=== PATIENT | female | born 1960 | race Two or more races ===

== ENCOUNTER 2020-12-06 13:56 | Inpatient (IN) | payer MEDICARE, MEDICAID ==
[~2020-12-06] VITALS: Ht 165.1 cm; Wt 57.6 kg
[2020-12-06] MEDS ORDERED: SODIUM CHLORIDE 0.9% 1,000 ML IV ONE (15:15)
[2020-12-06 15:49] LABS: Basophils # (auto) 0 10 ^3/uL (0-0.2); Basophils % (auto) 0.5 % (0.0-2.0); Eosinophils # (auto) 0.1 10 ^3/uL (0-0.8); Hematocrit 38.1 % (36.0-46.0); Hemoglobin 12.8 g/dL (12.2-16.2); Lymphocytes # (auto) 1.8 10 ^3/uL (0.4-5.4); Lymphocytes % (auto) 24.8 % (10.0-50.0); Mean Corpuscular Hemoglobin 30.3 pg (28.0-32.0); Mean Corpuscular Hgb Conc. 33.6 g/dL (32.0-36.0); Mean Corpuscular Volume 90.5 fL (80.0-100.0); Monocytes # (auto) 0.5 10 ^3/uL (0-1.3); Monocytes % (auto) 7.6 % (0.0-12.0); Neutrophils # (auto) 4.6 10 ^3/uL (1.6-8.6); Neutrophils % (auto) 65.1 % (37.0-80.0); Platelet Count (auto) 348 10^3/uL (140-450); Red Blood Cells 4.21 10^6/uL (4.0-5.20); Red Cell Distribution Width 13.4 % (11.8-14.3); White Blood Cell 7.1 10^3/uL (4.4-10.8)
[2020-12-06 16:09] LABS: Anion Gap 3 (5-15); Blood Urea Nitrogen 6 mg/dL (7-18); Calcium 8.5 mg/dL (8.5-10.1); Carbon Dioxide 28 mmol/L (21-32); Chloride 106 mmol/L (98-107); Glucose 92 mg/dL (74-106); Potassium 4.1 mmol/L (3.5-5.1); Sodium 137 mmol/L (136-145)
[2020-12-06 16:13] LABS: INR 0.91 (0.9-1.15); Partial Thromboplastin Time 27.4 sec (23.0-31.2)
[2020-12-06 16:17] LABS: Alanine Aminotransferase 30 U/L (13-56); Alkaline Phosphatase 134 U/L (45-117); Aspartate Aminotransferase 25 U/L (15-37); BUN/Creatinine Ratio 11.5; Bilirubin, Total < 0.1 mg/dL (0.2-1.0); GFR African American 155 mL/min; GFR Non-African American 128 mL/min; Total Protein 6.4 g/dL (6.4-8.2)
[2020-12-06] MEDS ORDERED: ONDANSETRON HCL 4 MG/2 ML VIAL IV ONE (18:15)
[2020-12-06] MEDS ORDERED: MORPHINE SULFATE 4 MG/ML SYR/VIAL IV ONE (18:15)
[2020-12-06] MEDS ORDERED: ONDANSETRON HCL 4 MG/2 ML VIAL IV PRN (19:15)
[2020-12-06] MEDS ORDERED: MORPHINE SULF INJ 2 MG/ML SYRINGE 1ML IV PRN (19:15)
[2020-12-06] MEDS ORDERED: NITROGLYCERIN 0.4 MG SL TAB SL PRN (19:15)
[2020-12-06 19:37] LABS: Urine Bacteria NONE SEEN /hpf (None Seen); Urine Blood Negative /uL (Negative); Urine Specific Gravity 1.007 (1.001-1.035); Urine WBC <1 /hpf (0 - 5)
[2020-12-06] MEDS: GABAPENTIN 100 MG CAP PO SCH (22:12)
[2020-12-06] MEDS: HYDROcodone-ACET 5/325MG TAB PO PRN (22:14)
[2020-12-06 23:15] VITALS: BP 129/68
[2020-12-06 23:20] VITALS: BP 129/68
[2020-12-07] MEDS ORDERED: PRIM50TA27 PO (00:29)
[2020-12-07] MEDS ORDERED: LISI-275 PO (00:29)
[2020-12-07] MEDS ORDERED: CLON0.5T3 PO (00:29)
[2020-12-07] MEDS ORDERED: SERT50TA19 PO (00:29)
[2020-12-07] MEDS ORDERED: MELO1TAB56 PO (00:29)
[2020-12-07] MEDS ORDERED: GABA-339 PO (00:29)
[2020-12-07] MEDS ORDERED: HYDR-4795 PO (00:32)
[2020-12-07] MEDS ORDERED: SERT-160 PO (03:07)
[2020-12-07 05:06] VITALS: BP 147/83
[2020-12-07] MEDS: GABAPENTIN 100 MG CAP PO SCH ×2 (09:35→22:00)
[2020-12-07] MEDS: FAMOTIDINE 20 MG TAB PO SCH (09:35)
[2020-12-07] MEDS: LISINOPRIL 5 MG TAB PO SCH (09:36)
[2020-12-07] MEDS ORDERED: ENOXAPARIN SOD 40 MG/0.4 ML SYRINGE SC SCH (10:00)
[2020-12-07 13:00] VITALS: BP 131/79
[2020-12-07 17:00] VITALS: BP 132/76
[2020-12-07 20:00] VITALS: BP 134/70
[2020-12-07 22:00] VITALS: BP 134/70
[2020-12-08] VITALS (15 sets, daily range): BP systolic 131–160; BP diastolic 68–114
[2020-12-08 06:42] LABS: Basophils # (auto) 0 10 ^3/uL (0-0.2); Basophils % (auto) 0.4 % (0.0-2.0); Eosinophils # (auto) 0.1 10 ^3/uL (0-0.8); Eosinophils % (auto) 2.1 % (0.0-7.0); Hematocrit 38.7 % (36.0-46.0); Hemoglobin 13.1 g/dL (12.2-16.2); Lymphocytes # (auto) 1.6 10 ^3/uL (0.4-5.4); Lymphocytes % (auto) 22.9 % (10.0-50.0); Mean Corpuscular Hemoglobin 30.6 pg (28.0-32.0); Mean Corpuscular Hgb Conc. 33.9 g/dL (32.0-36.0); Mean Corpuscular Volume 90.4 fL (80.0-100.0); Monocytes # (auto) 0.6 10 ^3/uL (0-1.3); Monocytes % (auto) 8.5 % (0.0-12.0); Neutrophils # (auto) 4.7 10 ^3/uL (1.6-8.6); Neutrophils % (auto) 66.1 % (37.0-80.0); Nucleated Red Blood Cells % 0.1 %; Platelet Count (auto) 319 10^3/uL (140-450); Red Blood Cells 4.28 10^6/uL (4.0-5.20); Red Cell Distribution Width 13.7 % (11.8-14.3); White Blood Cell 7.1 10^3/uL (4.4-10.8)
[2020-12-08 07:02] LABS: BUN/Creatinine Ratio 27.1; Calcium 9.1 mg/dL (8.5-10.1); Magnesium 2.4 mg/dL (1.6-2.6); Potassium 4.4 mmol/L (3.5-5.1)
[2020-12-08] MEDS: GABAPENTIN 100 MG CAP PO SCH ×2 (10:19→22:06)
[2020-12-08] MEDS: FAMOTIDINE 20 MG TAB PO SCH (10:19)
[2020-12-08] MEDS: LISINOPRIL 5 MG TAB PO SCH (10:20)
[2020-12-08] MEDS: HYDROcodone-ACET 5/325MG TAB PO PRN (10:20)
[2020-12-08] MEDS ORDERED: fentaNYL CITRATE 100 MCG/2 ML VL ONE (12:15)
[2020-12-08] MEDS ORDERED: ONDANSETRON HCL 4 MG/2 ML VIAL ONE (12:15)
[2020-12-08] MEDS ORDERED: ePHEDrine SULFATE 50 MG/ML AMP ONE (12:15)
[2020-12-08] MEDS ORDERED: KETAMINE HCL 10 ML ONE (12:15)
[2020-12-08] MEDS ORDERED: GLYCOPYRROLATE 0.2 MG/ML 1ML VIAL ONE (12:15)
[2020-12-08] MEDS ORDERED: MIDAZOLAM HCL 1MG/1ML-2 ML VIAL ONE (12:15)
[2020-12-08] MEDS ORDERED: PROPOFOL 10 MG/ML 20 ML IV ONE (12:15)
[2020-12-08] MEDS ORDERED: MORPHINE SULF(PF) 0.5MG/ML 10ML VIAL ONE (12:17)
[2020-12-08] MEDS ORDERED: BUPIVACAINE 0.5% P/F INJ 10 ML VIAL ONE (12:17)
[2020-12-08] MEDS ORDERED: ceFAZolin 1GM/50ML 50 ML IV SCH (14:15)
[2020-12-08] MEDS ORDERED: diphenhdrAMINE HCL 50 MG/1 ML VL IV PRN (14:15)
[2020-12-08] MEDS ORDERED: DexAMETHasone SOD PHOS 10MG/1ML VIAL INJ IV PRN (14:15)
[2020-12-08] MEDS ORDERED: NALOXONE HCL 0.4 MG/ML VIAL IV PRN (14:15)
[2020-12-08] MEDS ORDERED: ACETAMINOPHEN 325 MG TAB PO PRN (14:15)
[2020-12-08] MEDS ORDERED: ONDANSETRON HCL 4 MG/2 ML VIAL IV PRN (14:15)
[2020-12-08] MEDS: LACTATED RINGER'S 1,000 ML IV SCH (15:16)
[2020-12-08] MEDS: ceFAZolin 1GM/50ML 50 ML IV SCH ×2 (15:16→22:06)
[2020-12-08] MEDS: HYDROcodone-ACET 10/325MG TAB PO PRN ×2 (17:09→22:54)
[2020-12-08] MEDS ORDERED: LABETALOL HCL 5 MG/ML 4ML SYRINGE IV ONE (18:30)
[2020-12-08] MEDS: SODIUM CHLOR 0.9% PF (SALINE LOCK) 10ML VIAL/SYR IV SCH (22:06)
[2020-12-08] MEDS: ONDANSETRON HCL 4 MG/2 ML VIAL IV PRN (22:32)
[2020-12-09] VITALS (20 sets, daily range): BP systolic 99–159; BP diastolic 52–92
[2020-12-09] MEDS: LACTATED RINGER'S 1,000 ML IV SCH ×3 (00:15→20:15)
[2020-12-09] MEDS: ceFAZolin 1GM/50ML 50 ML IV SCH (03:11)
[2020-12-09 05:44] LABS: Basophils # (auto) 0 10 ^3/uL (0-0.2); Basophils % (auto) 0.1 % (0.0-2.0); Eosinophils # (auto) 0 10 ^3/uL (0-0.8); Eosinophils % (auto) 0.2 % (0.0-7.0); Hematocrit 31.2 % (36.0-46.0); Hemoglobin 11.1 g/dL (12.2-16.2); Lymphocytes # (auto) 1.3 10 ^3/uL (0.4-5.4); Mean Corpuscular Hemoglobin 31.6 pg (28.0-32.0); Mean Corpuscular Hgb Conc. 35.4 g/dL (32.0-36.0); Mean Corpuscular Volume 89.1 fL (80.0-100.0); Neutrophils # (auto) 8.6 10 ^3/uL (1.6-8.6); Neutrophils % (auto) 78.7 % (37.0-80.0); Platelet Count (auto) 269 10^3/uL (140-450); Red Cell Distribution Width 13.2 % (11.8-14.3); White Blood Cell 10.9 10^3/uL (4.4-10.8)
[2020-12-09 06:02] LABS: Albumin 2.5 g/dL (3.4-5.0); Potassium 3.6 mmol/L (3.5-5.1)
[2020-12-09] MEDS: HYDROcodone-ACET 10/325MG TAB PO PRN ×3 (06:04→22:19)
[2020-12-09] MEDS: SODIUM CHLOR 0.9% PF (SALINE LOCK) 10ML VIAL/SYR IV SCH ×3 (06:05→21:49)
[2020-12-09 06:07] LABS: BUN/Creatinine Ratio 15.4; Bilirubin, Total 0.3 mg/dL (0.2-1.0); Total Protein 5.6 g/dL (6.4-8.2)
[2020-12-09] MEDS: FAMOTIDINE 20 MG TAB PO SCH (10:35)
[2020-12-09] MEDS: LISINOPRIL 5 MG TAB PO SCH (10:35)
[2020-12-09] MEDS: GABAPENTIN 100 MG CAP PO SCH ×2 (10:36→21:45)
[2020-12-09] MEDS: ENOXAPARIN SOD 40 MG/0.4 ML SYRINGE SC SCH (10:38)
[2020-12-09] MEDS: LACTULOSE 20Gm/30ML SOLN PO PRN (12:35)
[2020-12-09] MEDS: Ensure HIGH Protein Chocolate 8oz Bottle PO SCH ×2 (12:41→18:53)
[2020-12-09] MEDS: MORPHINE SULF INJ 2 MG/ML SYRINGE 1ML IV PRN ×2 (16:15→23:19)
[2020-12-09] MEDS ORDERED: HYDROmorphone HCL 2 MG/ML VL IV ONE (17:45)
[2020-12-10] MEDS: MORPHINE SULF INJ 2 MG/ML SYRINGE 1ML IV PRN (04:45)
[2020-12-10 05:00] VITALS: BP 129/75
[2020-12-10] MEDS: SODIUM CHLOR 0.9% PF (SALINE LOCK) 10ML VIAL/SYR IV SCH ×3 (06:14→22:00)
[2020-12-10] MEDS: LACTATED RINGER'S 1,000 ML IV SCH ×2 (06:15→16:15)
[2020-12-10] MEDS: HYDROcodone-ACET 10/325MG TAB PO PRN ×4 (06:18→21:32)
[2020-12-10] MEDS: LACTULOSE 20Gm/30ML SOLN PO PRN (06:18)
[2020-12-10 06:56] LABS: Basophils # (auto) 0 10 ^3/uL (0-0.2); Basophils % (auto) 0.4 % (0.0-2.0); Eosinophils # (auto) 0.1 10 ^3/uL (0-0.8); Eosinophils % (auto) 0.5 % (0.0-7.0); Hematocrit 32.4 % (36.0-46.0); Hemoglobin 11.2 g/dL (12.2-16.2); Lymphocytes # (auto) 1.3 10 ^3/uL (0.4-5.4); Lymphocytes % (auto) 12.4 % (10.0-50.0); Mean Corpuscular Hemoglobin 31.1 pg (28.0-32.0); Mean Corpuscular Hgb Conc. 34.7 g/dL (32.0-36.0); Mean Corpuscular Volume 89.7 fL (80.0-100.0); Monocytes # (auto) 1.2 10 ^3/uL (0-1.3); Monocytes % (auto) 11.6 % (0.0-12.0); Neutrophils # (auto) 7.6 10 ^3/uL (1.6-8.6); Neutrophils % (auto) 75.1 % (37.0-80.0); Platelet Count (auto) 260 10^3/uL (140-450); Red Blood Cells 3.61 10^6/uL (4.0-5.20); Red Cell Distribution Width 13.5 % (11.8-14.3); White Blood Cell 10.2 10^3/uL (4.4-10.8)
[2020-12-10 07:15] LABS: Calcium 8.8 mg/dL (8.5-10.1); Potassium 3.9 mmol/L (3.5-5.1)
[2020-12-10 07:17] LABS: BUN/Creatinine Ratio 18.4
[2020-12-10 09:00] VITALS: BP 144/83
[2020-12-10] MEDS: GABAPENTIN 100 MG CAP PO SCH ×2 (10:01→21:31)
[2020-12-10] MEDS: Ensure HIGH Protein Chocolate 8oz Bottle PO SCH ×3 (10:01→17:55)
[2020-12-10] MEDS: LISINOPRIL 5 MG TAB PO SCH (10:02)
[2020-12-10] MEDS: FAMOTIDINE 20 MG TAB PO SCH ×2 (10:02→21:31)
[2020-12-10] MEDS: ENOXAPARIN SOD 40 MG/0.4 ML SYRINGE SC SCH (10:03)
[2020-12-10] MEDS: ONDANSETRON HCL 4 MG/2 ML VIAL IV PRN ×2 (12:18→21:32)
[2020-12-10 13:00] VITALS: BP 124/72
[2020-12-10 16:48] VITALS: BP 148/79
[2020-12-10 22:00] VITALS: BP 132/67
[2020-12-10] MEDS ORDERED: clonazePAM 0.5 MG TAB PO PRN (22:00)
[2020-12-11] MEDS: LACTATED RINGER'S 1,000 ML IV SCH ×3 (02:15→22:15)
[2020-12-11 05:00] VITALS: BP 120/66
[2020-12-11] MEDS: HYDROcodone-ACET 10/325MG TAB PO PRN ×3 (05:22→20:54)
[2020-12-11] MEDS: SODIUM CHLOR 0.9% PF (SALINE LOCK) 10ML VIAL/SYR IV SCH ×3 (05:52→22:00)
[2020-12-11 06:16] LABS: Basophils # (auto) 0 10 ^3/uL (0-0.2); Basophils % (auto) 0.1 % (0.0-2.0); Eosinophils # (auto) 0.1 10 ^3/uL (0-0.8); Eosinophils % (auto) 1.4 % (0.0-7.0); Hematocrit 31.3 % (36.0-46.0); Hemoglobin 11.1 g/dL (12.2-16.2); Lymphocytes # (auto) 1.8 10 ^3/uL (0.4-5.4); Lymphocytes % (auto) 20.7 % (10.0-50.0); Mean Corpuscular Hemoglobin 31.7 pg (28.0-32.0); Mean Corpuscular Hgb Conc. 35.5 g/dL (32.0-36.0); Mean Corpuscular Volume 89.1 fL (80.0-100.0); Monocytes % (auto) 11.5 % (0.0-12.0); Neutrophils # (auto) 5.8 10 ^3/uL (1.6-8.6); Neutrophils % (auto) 66.3 % (37.0-80.0); Platelet Count (auto) 264 10^3/uL (140-450); Red Blood Cells 3.52 10^6/uL (4.0-5.20); Red Cell Distribution Width 13.4 % (11.8-14.3); White Blood Cell 8.7 10^3/uL (4.4-10.8)
[2020-12-11 06:36] LABS: Potassium 3.6 mmol/L (3.5-5.1)
[2020-12-11 06:41] LABS: Albumin 2.6 g/dL (3.4-5.0)
[2020-12-11 06:44] LABS: Bilirubin, Total 0.3 mg/dL (0.2-1.0); Total Protein 6.3 g/dL (6.4-8.2)
[2020-12-11] MEDS: Ensure HIGH Protein Chocolate 8oz Bottle PO SCH ×3 (08:01→18:53)
[2020-12-11] MEDS: ONDANSETRON HCL 4 MG/2 ML VIAL IV PRN ×2 (08:06→18:55)
[2020-12-11 09:00] VITALS: BP 126/73
[2020-12-11] MEDS: ENOXAPARIN SOD 40 MG/0.4 ML SYRINGE SC SCH (09:15)
[2020-12-11] MEDS: FAMOTIDINE 20 MG TAB PO SCH ×2 (09:16→21:28)
[2020-12-11] MEDS: GABAPENTIN 100 MG CAP PO SCH (09:16)
[2020-12-11] MEDS: PRIMIDONE 50 MG TAB PO SCH ×2 (09:16→21:28)
[2020-12-11] MEDS: LISINOPRIL 5 MG TAB PO SCH (09:17)
[2020-12-11 13:00] VITALS: BP 115/76
[2020-12-11 17:00] VITALS: BP 112/65
[2020-12-11] MEDS: GABAPENTIN 300 MG CAP PO SCH (21:28)
[2020-12-11] MEDS: SERTRALINE HCL 50 MG TAB PO SCH (21:28)
[2020-12-11 22:13] VITALS: BP 134/78
[2020-12-12 04:53] VITALS: BP 112/55
[2020-12-12 05:58] LABS: Basophils # (auto) 0 10 ^3/uL (0-0.2); Basophils % (auto) 0.3 % (0.0-2.0); Eosinophils # (auto) 0.2 10 ^3/uL (0-0.8); Eosinophils % (auto) 2.1 % (0.0-7.0); Hematocrit 28.2 % (36.0-46.0); Lymphocytes # (auto) 1.2 10 ^3/uL (0.4-5.4); Lymphocytes % (auto) 14.8 % (10.0-50.0); Mean Corpuscular Hemoglobin 31.4 pg (28.0-32.0); Mean Corpuscular Hgb Conc. 35.3 g/dL (32.0-36.0); Mean Corpuscular Volume 88.8 fL (80.0-100.0); Neutrophils # (auto) 5.7 10 ^3/uL (1.6-8.6); Neutrophils % (auto) 70.8 % (37.0-80.0); Nucleated Red Blood Cells % 0.1 %; Platelet Count (auto) 256 10^3/uL (140-450); Red Blood Cells 3.17 10^6/uL (4.0-5.20); Red Cell Distribution Width 13.4 % (11.8-14.3)
[2020-12-12] MEDS: SODIUM CHLOR 0.9% PF (SALINE LOCK) 10ML VIAL/SYR IV SCH (06:00)
[2020-12-12 06:20] LABS: Potassium 4.1 mmol/L (3.5-5.1)
[2020-12-12 06:32] LABS: BUN/Creatinine Ratio 35.5; Calcium 8.7 mg/dL (8.5-10.1)
[2020-12-12] MEDS: Ensure HIGH Protein Chocolate 8oz Bottle PO SCH (08:00)
[2020-12-12] MEDS: LACTATED RINGER'S 1,000 ML IV SCH (08:15)
[2020-12-12 09:00] VITALS: BP 108/67
[2020-12-12] MEDS: PRIMIDONE 50 MG TAB PO SCH (09:13)
[2020-12-12] MEDS: FAMOTIDINE 20 MG TAB PO SCH (09:14)
[2020-12-12] MEDS: GABAPENTIN 300 MG CAP PO SCH (09:14)
[2020-12-12] MEDS: LISINOPRIL 5 MG TAB PO SCH (09:15)
[2020-12-12] MEDS: SERTRALINE HCL 50 MG TAB PO SCH (09:15)
[2020-12-12] MEDS: ENOXAPARIN SOD 40 MG/0.4 ML SYRINGE SC SCH (09:15)
[2020-12-12] MEDS: LACTULOSE 20Gm/30ML SOLN PO PRN (09:15)
[2020-12-12 12:46] VITALS: BP 114/62
== END 2020-12-12 16:40 | disposition home or self-care (01) | DRG 480 ==
LOC: ER 13:56 → TELE 19:01 → TELE-EAST 23:11
PROVIDERS: ADMIT Nurse Practitioner Acute Care; ATTEND Internal Medicine
PROC: BQ13ZZZ Fluoroscopy of Right Femur (ICD-10-PCS; 2020-12-08)
PROC: 0QS636Z Reposition Right Upper Femur with Intramedullary Internal Fixation Device, Percutaneous Approach (ICD-10-PCS; principal; 2020-12-08 12:20)
DX: S72.101A Unspecified trochanteric fracture of right femur, initial encounter for closed fracture (principal); N17.0 Acute kidney failure with tubular necrosis; E44.0 Moderate protein-calorie malnutrition; E87.1 Hypo-osmolality and hyponatremia; G62.9 Polyneuropathy, unspecified; M54.12 Radiculopathy, cervical region; F41.9 Anxiety disorder, unspecified; M54.16 Radiculopathy, lumbar region; K21.9 Gastro-esophageal reflux disease without esophagitis; N18.9 Chronic kidney disease, unspecified; I12.9 Hypertensive chronic kidney disease with stage 1 through stage 4 chronic kidney disease, or unspecified chronic kidney disease; W01.0XXA Fall on same level from slipping, tripping and stumbling without subsequent striking against object, initial encounter; Z20.822 Contact with and (suspected) exposure to COVID-19; W18.39XA Other fall on same level, initial encounter; Y93.89 Activity, other specified; Y92.89 Other specified places as the place of occurrence of the external cause; Y99.8 Other external cause status; Z80.3 Family history of malignant neoplasm of breast; Z80.8 Family history of malignant neoplasm of other organs or systems
CPT/HCPCS: 36415; 71045; 72192; 73501; 76001; 80048; 80053; 81001; 83735; 84443; 84484; 84702; 85025; 85610; 85730; 86850; 86900; 86901; 87081; 87426; 93306; 96361; 96374; 96375; 97110; 97116; 97530; A4565; G0378; J0690; J2250; J2405; J2704; J3490

== ENCOUNTER 2021-10-21 13:25 | Inpatient (IN) | payer MEDICAID, MEDICARE, OTHER ==
[~2021-10-21] VITALS: Ht 165.1 cm; Wt 62.2 kg
[~2021-10-21 13:25] MED LIST: CLON0.5T3 PO; GABA-339 PO; HYDR-4795 PO; LISI-275 PO; MELO1TAB56 PO; PRIM50TA27 PO; SERT-160 PO; SERT50TA19 PO
[2021-10-21 16:00] LABS: Basophils # (auto) 0 10 ^3/uL (0-0.2); Basophils % (auto) 0.2 % (0.0-2.0); Eosinophils # (auto) 0.1 10 ^3/uL (0-0.8); Eosinophils % (auto) 0.4 % (0.0-7.0); Hematocrit 33.1 % (36.0-46.0); Hemoglobin 11.6 g/dL (12.2-16.2); Lymphocytes # (auto) 1.2 10 ^3/uL (0.4-5.4); Mean Corpuscular Hemoglobin 31.4 pg (28.0-32.0); Mean Corpuscular Hgb Conc. 34.9 g/dL (32.0-36.0); Mean Corpuscular Volume 89.9 fL (80.0-100.0); Monocytes % (auto) 8.2 % (0.0-12.0); Neutrophils # (auto) 9.8 10 ^3/uL (1.6-8.6); Neutrophils % (auto) 81.2 % (37.0-80.0); Red Blood Cells 3.68 10^6/uL (4.0-5.20); Red Cell Distribution Width 13.4 % (11.8-14.3)
[2021-10-21 16:15] LABS: Albumin 3.1 g/dL (3.4-5.0); BUN/Creatinine Ratio 18.5; Calcium 8.6 mg/dL (8.5-10.1); Potassium 3.7 mmol/L (3.5-5.1)
[2021-10-21 16:30] LABS: Bilirubin, Total 0.4 mg/dL (0.2-1.0); Total Protein 6.3 g/dL (6.4-8.2)
[2021-10-21] MEDS ORDERED: MORPHINE SULFATE INJECTION 2 MG/ML SYRG IV PRN (18:30)
[2021-10-21] MEDS ORDERED: NITROGLYCERIN 0.4 MG SL TAB SL PRN (18:30)
[2021-10-21] MEDS ORDERED: D5W/LACTATED RINGERS 1,000 ML IV SCH (18:30)
[2021-10-21] MEDS: MORPHINE SULFATE INJECTION 2 MG/ML SYRG IV PRN (19:38)
[2021-10-21] MEDS ORDERED: LORazepam 0.5 MG TAB PO PRN (19:45)
[2021-10-21] MEDS ORDERED: hydrALAZINE HCL 20 MG/ML VL IV PRN (19:45)
[2021-10-21] MEDS ORDERED: FERROUS SULFATE 325mg EC TAB PO ONE (19:45)
[2021-10-21] MEDS ORDERED: AZITHROMYCIN 500MG/ 250ML 250 ML IV ONE (19:45)
[2021-10-21] MEDS ORDERED: SUCRALFATE 1 GM/10 ML ORAL SUSP PO ONE (19:45)
[2021-10-21] MEDS ORDERED: PROPOFOL 10 MG/ML 20 ML IV ONE (19:45)
[2021-10-21] MEDS ORDERED: MULTIPLE VITAMINS W/ MINERALS TAB PO ONE (19:45)
[2021-10-21] MEDS ORDERED: ACETAMINOPHEN 325 MG TAB PO PRN (19:45)
[2021-10-21] MEDS ORDERED: HYDROcodone-ACET 5/325MG TAB PO ONE (19:45)
[2021-10-21] MEDS ORDERED: IPRATROPIUM BROM 0.5 MG/2.5ML INH SOL NEB ONE (19:45)
[2021-10-21] MEDS ORDERED: BUDESONIDE (INHALATION) 0.5 MG/2 ML NEB NEB ONE (19:45)
[2021-10-21] MEDS ORDERED: KETAMINE 50mg/ML 10ml Vial (500mg/10ml) IV ONE (19:45)
[2021-10-21] MEDS ORDERED: PANTOPRAZOLE 40 MG/10 ML VIAL INJ IV ONE (19:45)
[2021-10-21] MEDS ORDERED: DOCUSATE SOD 100 MG CAP PO PRN (19:45)
[2021-10-21] MEDS ORDERED: LACTULOSE 20Gm/30ML SOLN PO PRN (19:45)
[2021-10-21] MEDS ORDERED: cefTRIAXone 1GM/50ML D5W 50 ML IV ONE (19:45)
[2021-10-21] MEDS ORDERED: FOLIC ACID 1 MG TAB PO ONE (19:45)
[2021-10-21 20:13] LABS: Magnesium 2.2 mg/dL (1.6-2.6); Phosphorus 2.5 mg/dL (2.5-4.90)
[2021-10-21] MEDS ORDERED: KETAMINE HCL 10 ML ONE (21:35)
[2021-10-21] MEDS ORDERED: PROPOFOL 100 ML IV ONE (21:37)
[2021-10-21] MEDS ORDERED: IPRATROPIUM BROM 0.5 MG/2.5ML INH SOL NEB SCH (22:00)
[2021-10-21] MEDS ORDERED: IPRATROPIUM BROM 0.5 MG/2.5ML INH SOL NEB PRN (22:00)
[2021-10-21] MEDS ORDERED: BUDESONIDE (INHALATION) 0.5 MG/2 ML NEB NEB SCH (22:00)
[2021-10-21 22:01] LABS: INR 0.99 (0.9-1.15)
[2021-10-21] MEDS: CARVEDILOL 3.125 MG TAB PO SCH (23:00)
[2021-10-21] MEDS: SUCRALFATE 1 GM/10 ML ORAL SUSP PO SCH (23:00)
[2021-10-21] MEDS: GABAPENTIN 300 MG CAP PO SCH (23:00)
[2021-10-21] MEDS: POTASSIUM CHL 20 Meq TABLET PO SCH (23:00)
[2021-10-21] MEDS: ATORVASTATIN 20 MG TAB PO SCH (23:00)
[2021-10-21 23:50] VITALS: BP 155/72
[2021-10-22] MEDS: SODIUM CHLORIDE 0.9% 1,000 ML IV SCH ×3 (04:04→22:11)
[2021-10-22 05:00] VITALS: BP 120/61
[2021-10-22] MEDS: FUROSEMIDE 20 MG/2 ML VIAL IV SCH ×2 (06:00→17:46)
[2021-10-22] MEDS: GABAPENTIN 300 MG CAP PO SCH ×3 (06:00→22:13)
[2021-10-22] MEDS: SUCRALFATE 1 GM/10 ML ORAL SUSP PO SCH ×4 (07:00→22:12)
[2021-10-22 07:10] LABS: Blood Urea Nitrogen 9 mg/dL (7-18); Chloride 107 mmol/L (98-107); Glucose 95 mg/dL (74-106); Potassium 4.2 mmol/L (3.5-5.1); Sodium 134 mmol/L (136-145)
[2021-10-22 07:33] LABS: INR 0.99 (0.9-1.15); Partial Thromboplastin Time 28.2 sec (23.6-33.0)
[2021-10-22 07:35] LABS: Alanine Aminotransferase 35 U/L (13-56); Albumin 2.8 g/dL (3.4-5.0); Alkaline Phosphatase 90 U/L (45-117); Anion Gap 5 (5-15); Aspartate Aminotransferase 21 U/L (15-37); BUN/Creatinine Ratio 18.4; Bilirubin, Total 0.6 mg/dL (0.2-1.0); CRP High Sensitivity 8.38 mg/dL (< 0.3); Calcium 8.3 mg/dL (8.5-10.1); Carbon Dioxide 22 mmol/L (21-32); Cholesterol 128 mg/dL (< 200); Creatine Kinase IFCC 91 U/L (26-192); GFR African American 166 mL/min; GFR Non-African American 137 mL/min; HDL Cholesterol 53 mg/dL (40-59); LDL Cholesterol 62 mg/dL (< 100); Lipase 71 U/L (73-393); Magnesium 2.3 mg/dL (1.6-2.6); Phosphorus 2.8 mg/dL (2.5-4.90); Total Protein 5.9 g/dL (6.4-8.2); Triglycerides 68 mg/dL (< 150); Uric Acid 1.6 mg/dL (2.6-6.0)
[2021-10-22 07:38] LABS: Basophils # (auto) 0 10 ^3/uL (0-0.2); Basophils % (auto) 0.3 % (0.0-2.0); Eosinophils # (auto) 0.1 10 ^3/uL (0-0.8); Eosinophils % (auto) 1.6 % (0.0-7.0); Hemoglobin 11.1 g/dL (12.2-16.2); Lymphocytes # (auto) 1.3 10 ^3/uL (0.4-5.4); Lymphocytes % (auto) 15.3 % (10.0-50.0); Mean Corpuscular Hemoglobin 32.2 pg (28.0-32.0); Mean Corpuscular Hgb Conc. 35.8 g/dL (32.0-36.0); Mean Corpuscular Volume 89.8 fL (80.0-100.0); Monocytes % (auto) 10.8 % (0.0-12.0); Neutrophils # (auto) 6.3 10 ^3/uL (1.6-8.6); Red Blood Cells 3.45 10^6/uL (4.0-5.20); Red Cell Distribution Width 13.2 % (11.8-14.3); White Blood Cell 8.8 10^3/uL (4.4-10.8)
[2021-10-22] MEDS: cefTRIAXone 1GM/50ML D5W 50 ML IV SCH (09:10)
[2021-10-22] MEDS: FERROUS SULFATE 325mg EC TAB PO SCH ×3 (09:10→18:05)
[2021-10-22] MEDS: CALCIUM W/VIT D (600MG/400IU) TAB PO SCH ×2 (09:10→18:05)
[2021-10-22 09:13] VITALS: BP 105/63
[2021-10-22] MEDS: ENOXAPARIN SOD 40 MG/0.4 ML SYRINGE SC SCH (10:00)
[2021-10-22] MEDS ORDERED: ENOXAPARIN SOD 40 MG/0.4 ML SYRINGE SC SCH (10:00)
[2021-10-22] MEDS: ASPirin 81 mg TAB PO SCH (10:24)
[2021-10-22] MEDS: AZITHROMYCIN 500MG/ 250ML 250 ML IV SCH (10:24)
[2021-10-22] MEDS: PANTOPRAZOLE 40 MG/10 ML VIAL INJ IV SCH (10:24)
[2021-10-22] MEDS: FOLIC ACID 1 MG TAB PO SCH (10:25)
[2021-10-22] MEDS: THIAMINE HCL 100 MG TAB PO SCH (10:25)
[2021-10-22] MEDS: POTASSIUM CHL 20 Meq TABLET PO SCH ×2 (10:25→22:13)
[2021-10-22] MEDS: CYANOCOBALAMIN 500 MCG TAB PO SCH (10:26)
[2021-10-22] MEDS: PRIMIDONE 50 MG TAB PO SCH (10:26)
[2021-10-22] MEDS: MULTIPLE VITAMINS W/ MINERALS TAB PO SCH (10:26)
[2021-10-22] MEDS: CHOLECALCIFEROL (VITD3) 2,000 UNIT CAP/TAB PO SCH (10:27)
[2021-10-22] MEDS: SERTRALINE HCL 50 MG TAB PO SCH (10:27)
[2021-10-22] MEDS: CARVEDILOL 3.125 MG TAB PO SCH ×2 (10:39→22:13)
[2021-10-22] MEDS: BENAZEPRIL HCL 10 MG TAB PO SCH (10:39)
[2021-10-22] MEDS: ONDANSETRON HCL 4 MG/2 ML VIAL IV PRN ×2 (12:50→21:00)
[2021-10-22 14:10] VITALS: BP 87/51
[2021-10-22 16:58] VITALS: BP 90/46
[2021-10-22 20:00] VITALS: BP 101/62
[2021-10-22 22:00] VITALS: BP 101/52
[2021-10-22] MEDS: ATORVASTATIN 20 MG TAB PO SCH (22:14)
[2021-10-23] MEDS: ONDANSETRON HCL 4 MG/2 ML VIAL IV PRN ×2 (03:11→06:04)
[2021-10-23] MEDS: MORPHINE SULFATE INJECTION 2 MG/ML SYRG IV PRN ×2 (03:11→10:43)
[2021-10-23 05:00] VITALS: BP 123/57
[2021-10-23] MEDS: SODIUM CHLORIDE 0.9% 1,000 ML IV SCH ×4 (06:03→21:54)
[2021-10-23] MEDS: FUROSEMIDE 20 MG/2 ML VIAL IV SCH ×2 (06:05→18:34)
[2021-10-23] MEDS: GABAPENTIN 300 MG CAP PO SCH ×3 (06:06→21:52)
[2021-10-23] MEDS: SUCRALFATE 1 GM/10 ML ORAL SUSP PO SCH ×4 (06:06→21:50)
[2021-10-23] MEDS: FERROUS SULFATE 325mg EC TAB PO SCH ×3 (08:10→18:34)
[2021-10-23] MEDS: CALCIUM W/VIT D (600MG/400IU) TAB PO SCH ×2 (08:11→18:35)
[2021-10-23 09:00] VITALS: BP 113/70
[2021-10-23] MEDS: cefTRIAXone 1GM/50ML D5W 50 ML IV SCH (09:37)
[2021-10-23] MEDS: AZITHROMYCIN 500MG/ 250ML 250 ML IV SCH (09:37)
[2021-10-23] MEDS: PANTOPRAZOLE 40 MG/10 ML VIAL INJ IV SCH (09:37)
[2021-10-23] MEDS: POTASSIUM CHL 20 Meq TABLET PO SCH ×2 (09:38→21:52)
[2021-10-23] MEDS: FOLIC ACID 1 MG TAB PO SCH (09:38)
[2021-10-23] MEDS: ASPirin 81 mg TAB PO SCH (09:38)
[2021-10-23] MEDS: THIAMINE HCL 100 MG TAB PO SCH (09:38)
[2021-10-23] MEDS: BENAZEPRIL HCL 10 MG TAB PO SCH (09:39)
[2021-10-23] MEDS: MULTIPLE VITAMINS W/ MINERALS TAB PO SCH (09:39)
[2021-10-23] MEDS: ENOXAPARIN SOD 40 MG/0.4 ML SYRINGE SC SCH (09:40)
[2021-10-23] MEDS: CHOLECALCIFEROL (VITD3) 2,000 UNIT CAP/TAB PO SCH (09:40)
[2021-10-23] MEDS: CYANOCOBALAMIN 500 MCG TAB PO SCH (09:40)
[2021-10-23] MEDS: SERTRALINE HCL 50 MG TAB PO SCH (09:40)
[2021-10-23] MEDS: PRIMIDONE 50 MG TAB PO SCH (09:40)
[2021-10-23] MEDS: CARVEDILOL 3.125 MG TAB PO SCH ×2 (09:51→21:51)
[2021-10-23] MEDS ORDERED: BUPIVACAINE 0.25% INJ 50ML VIAL ONE ×2 (12:05→13:26)
[2021-10-23] MEDS ORDERED: EPINEPHrine HCL 1 MG/1 ML AMP ONE (12:05)
[2021-10-23] MEDS ORDERED: KETOROLAC TROMETH 30 MG/ML 1ML VIAL ONE (12:09)
[2021-10-23] MEDS ORDERED: MORPHINE SULF PF 5 MG/10 ML VIAL ONE (12:11)
[2021-10-23] MEDS ORDERED: BUPIVACAINE W/ EPINEPH 0.25% INJ 50ML MDV ONE (12:13)
[2021-10-23] MEDS ORDERED: fentaNYL CITRATE 100 MCG/2 ML VL ONE (12:17)
[2021-10-23] MEDS ORDERED: MIDAZOLAM HCL 2MG/2ML 2ml VIAL (1mg/ml) ONE (12:17)
[2021-10-23] MEDS ORDERED: MEPERIDINE HCL (50 MG/ML) 1 ML VIAL ONE (12:18)
[2021-10-23] MEDS ORDERED: DexAMETHasone SOD PHOS 10MG/1ML VIAL INJ ONE (12:19)
[2021-10-23] MEDS ORDERED: ceFAZolin 1GM/50ML 50 ML IV ONE (12:24)
[2021-10-23] MEDS ORDERED: PROPOFOL 10 MG/ML 20 ML IV ONE (12:25)
[2021-10-23] MEDS ORDERED: MORPHINE SULFATE 4 MG/ML SYR/VIAL IV PRN (13:00)
[2021-10-23] MEDS ORDERED: ePHEDrine SULFATE 50 MG/ML AMP IV PRN (13:00)
[2021-10-23] MEDS ORDERED: MIDAZOLAM HCL 2MG/2ML 2ml VIAL (1mg/ml) IV PRN (13:00)
[2021-10-23] MEDS ORDERED: ONDANSETRON HCL 4 MG/2 ML VIAL IV PRN (13:00)
[2021-10-23] MEDS ORDERED: LABETALOL HCL 5 MG/ML 4ML SYRINGE IV PRN (13:00)
[2021-10-23] MEDS: ceFAZolin 2 GM in D5W 5% 100 ML IV SCH ×2 (14:00→21:50)
[2021-10-23] MEDS: HYDROmorphone HCL 2 MG/ML VL IV PRN ×2 (14:23→14:35)
[2021-10-23 17:00] VITALS: BP 106/77
[2021-10-23 20:00] VITALS: BP 110/62
[2021-10-23 21:48] VITALS: BP 100/55
[2021-10-23] MEDS: ATORVASTATIN 20 MG TAB PO SCH (21:52)
[2021-10-24 04:58] VITALS: BP 114/68
[2021-10-24] MEDS: ceFAZolin 2 GM in D5W 5% 100 ML IV SCH (05:28)
[2021-10-24] MEDS: SODIUM CHLORIDE 0.9% 1,000 ML IV SCH (05:28)
[2021-10-24] MEDS: FUROSEMIDE 20 MG/2 ML VIAL IV SCH ×2 (05:29→18:00)
[2021-10-24] MEDS: GABAPENTIN 300 MG CAP PO SCH ×3 (05:30→22:03)
[2021-10-24 05:58] LABS: Basophils # (auto) 0 10 ^3/uL (0-0.2); Basophils % (auto) 0.2 % (0.0-2.0); Eosinophils # (auto) 0.1 10 ^3/uL (0-0.8); Eosinophils % (auto) 0.5 % (0.0-7.0); Hematocrit 25.7 % (36.0-46.0); Hemoglobin 9.3 g/dL (12.2-16.2); Lymphocytes # (auto) 1.3 10 ^3/uL (0.4-5.4); Lymphocytes % (auto) 12.4 % (10.0-50.0); Mean Corpuscular Hemoglobin 32.3 pg (28.0-32.0); Mean Corpuscular Hgb Conc. 36.1 g/dL (32.0-36.0); Mean Corpuscular Volume 89.7 fL (80.0-100.0); Monocytes # (auto) 0.9 10 ^3/uL (0-1.3); Monocytes % (auto) 8.9 % (0.0-12.0); Neutrophils # (auto) 8.2 10 ^3/uL (1.6-8.6); Red Blood Cells 2.86 10^6/uL (4.0-5.20); Red Cell Distribution Width 13.2 % (11.8-14.3); White Blood Cell 10.5 10^3/uL (4.4-10.8)
[2021-10-24] MEDS: SUCRALFATE 1 GM/10 ML ORAL SUSP PO SCH ×4 (06:00→22:02)
[2021-10-24 06:15] LABS: Potassium 4.8 mmol/L (3.5-5.1)
[2021-10-24 06:21] LABS: BUN/Creatinine Ratio 29.6; Calcium 8.5 mg/dL (8.5-10.1)
[2021-10-24 09:00] VITALS: BP 117/67
[2021-10-24] MEDS: HYDROcodone-ACET 5/325MG TAB PO PRN ×2 (09:51→22:05)
[2021-10-24] MEDS: CARVEDILOL 3.125 MG TAB PO SCH ×2 (10:00→22:04)
[2021-10-24] MEDS: BENAZEPRIL HCL 10 MG TAB PO SCH (10:00)
[2021-10-24] MEDS: CALCIUM W/VIT D (600MG/400IU) TAB PO SCH ×2 (11:08→18:00)
[2021-10-24] MEDS: ASPirin 81 mg TAB PO SCH (11:08)
[2021-10-24] MEDS: FOLIC ACID 1 MG TAB PO SCH (11:08)
[2021-10-24] MEDS: PANTOPRAZOLE 40 MG/10 ML VIAL INJ IV SCH (11:08)
[2021-10-24] MEDS: FERROUS SULFATE 325mg EC TAB PO SCH ×3 (11:08→18:00)
[2021-10-24] MEDS: POTASSIUM CHL 20 Meq TABLET PO SCH ×2 (11:09→22:02)
[2021-10-24] MEDS: MULTIPLE VITAMINS W/ MINERALS TAB PO SCH (11:09)
[2021-10-24] MEDS: THIAMINE HCL 100 MG TAB PO SCH (11:09)
[2021-10-24] MEDS: CYANOCOBALAMIN 500 MCG TAB PO SCH (11:09)
[2021-10-24] MEDS: PRIMIDONE 50 MG TAB PO SCH (11:09)
[2021-10-24] MEDS: SERTRALINE HCL 50 MG TAB PO SCH (11:10)
[2021-10-24] MEDS: CHOLECALCIFEROL (VITD3) 2,000 UNIT CAP/TAB PO SCH (11:10)
[2021-10-24] MEDS: ENOXAPARIN SOD 40 MG/0.4 ML SYRINGE SC SCH (11:10)
[2021-10-24 13:00] VITALS: BP 110/61
[2021-10-24 16:14] LABS: Folate (Folic Acid) 13.35 ng/mL (5.38-24)
[2021-10-24] MEDS: MORPHINE SULFATE INJECTION 2 MG/ML SYRG IV PRN (19:12)
[2021-10-24 20:00] VITALS: BP 110/68
[2021-10-24 22:00] VITALS: BP 101/46
[2021-10-24] MEDS: ATORVASTATIN 20 MG TAB PO SCH (22:03)
[2021-10-25 05:00] VITALS: BP 109/52
[2021-10-25] MEDS: FUROSEMIDE 20 MG/2 ML VIAL IV SCH ×2 (06:15→17:43)
[2021-10-25] MEDS: SUCRALFATE 1 GM/10 ML ORAL SUSP PO SCH ×3 (06:15→17:42)
[2021-10-25] MEDS: GABAPENTIN 300 MG CAP PO SCH ×2 (06:16→14:02)
[2021-10-25] MEDS: HYDROcodone-ACET 5/325MG TAB PO PRN (06:25)
[2021-10-25] MEDS: ONDANSETRON HCL 4 MG/2 ML VIAL IV PRN (06:26)
[2021-10-25 09:00] VITALS: BP 98/50
[2021-10-25] MEDS: FERROUS SULFATE 325mg EC TAB PO SCH ×3 (10:16→17:44)
[2021-10-25] MEDS: FOLIC ACID 1 MG TAB PO SCH (10:17)
[2021-10-25] MEDS: ASPirin 81 mg TAB PO SCH (10:17)
[2021-10-25] MEDS: PANTOPRAZOLE 40 MG/10 ML VIAL INJ IV SCH (10:17)
[2021-10-25] MEDS: CALCIUM W/VIT D (600MG/400IU) TAB PO SCH ×2 (10:17→17:44)
[2021-10-25] MEDS: THIAMINE HCL 100 MG TAB PO SCH (10:18)
[2021-10-25] MEDS: CARVEDILOL 3.125 MG TAB PO SCH (10:20)
[2021-10-25] MEDS: POTASSIUM CHL 20 Meq TABLET PO SCH (10:20)
[2021-10-25] MEDS: CYANOCOBALAMIN 500 MCG TAB PO SCH (10:21)
[2021-10-25] MEDS: PRIMIDONE 50 MG TAB PO SCH (10:21)
[2021-10-25] MEDS: MULTIPLE VITAMINS W/ MINERALS TAB PO SCH (10:21)
[2021-10-25] MEDS: BENAZEPRIL HCL 10 MG TAB PO SCH (10:21)
[2021-10-25] MEDS: SERTRALINE HCL 50 MG TAB PO SCH (10:22)
[2021-10-25] MEDS: CHOLECALCIFEROL (VITD3) 2,000 UNIT CAP/TAB PO SCH (10:22)
[2021-10-25] MEDS: ENOXAPARIN SOD 40 MG/0.4 ML SYRINGE SC SCH (10:22)
[2021-10-25 10:24] LABS: Basophils # (auto) 0.1 10 ^3/uL (0-0.2); Basophils % (auto) 0.7 % (0.0-2.0); Eosinophils # (auto) 0.2 10 ^3/uL (0-0.8); Eosinophils % (auto) 1.5 % (0.0-7.0); Hematocrit 25.7 % (36.0-46.0); Hemoglobin 9.1 g/dL (12.2-16.2); Lymphocytes # (auto) 1.1 10 ^3/uL (0.4-5.4); Lymphocytes % (auto) 10.7 % (10.0-50.0); Mean Corpuscular Hemoglobin 31.7 pg (28.0-32.0); Mean Corpuscular Hgb Conc. 35.4 g/dL (32.0-36.0); Mean Corpuscular Volume 89.6 fL (80.0-100.0); Monocytes # (auto) 0.7 10 ^3/uL (0-1.3); Monocytes % (auto) 6.7 % (0.0-12.0); Neutrophils % (auto) 80.4 % (37.0-80.0); Nucleated Red Blood Cells % 0.1 %; Red Blood Cells 2.87 10^6/uL (4.0-5.20); Red Cell Distribution Width 13.1 % (11.8-14.3); White Blood Cell 9.9 10^3/uL (4.4-10.8)
[2021-10-25] MEDS ORDERED: RIVA10TA PO (10:56)
[2021-10-25] MEDS ORDERED: HYDR-4902 PO (10:56)
[2021-10-25 13:00] VITALS: BP 120/58
[2021-10-25 17:00] VITALS: BP 117/57
[2021-10-25 18:04] VITALS: BP 115/58
== END 2021-10-25 19:07 | disposition home health service (06) | DRG 480 ==
LOC: EDBD 13:25 → ER 13:25 → EDUNIT# 13:25 → OVERFLOW 18:26 → WEST WING 22:33
PROVIDERS: ADMIT Hospitalist; ATTEND Internal Medicine
PROC: BW1C1ZZ Fluoroscopy of Lower Extremity using Low Osmolar Contrast (ICD-10-PCS; 2021-10-23)
PROC: BW1J1ZZ Fluoroscopy of Upper Extremity using Low Osmolar Contrast (ICD-10-PCS; 2021-10-23)
PROC: 0QS704Z Reposition Left Upper Femur with Internal Fixation Device, Open Approach (ICD-10-PCS; principal; 2021-10-23 12:27)
PROC: 0PSJ04Z Reposition Left Radius with Internal Fixation Device, Open Approach (ICD-10-PCS; 2021-10-23 12:27)
DX: S52.532A Colles' fracture of left radius, initial encounter for closed fracture (principal); S72.142A Displaced intertrochanteric fracture of left femur, initial encounter for closed fracture; N39.0 Urinary tract infection, site not specified; E44.0 Moderate protein-calorie malnutrition; R71.0 Precipitous drop in hematocrit; W18.39XA Other fall on same level, initial encounter; Y93.01 Activity, walking, marching and hiking; J44.9 Chronic obstructive pulmonary disease, unspecified; J20.9 Acute bronchitis, unspecified; M85.80 Other specified disorders of bone density and structure, unspecified site; E78.5 Hyperlipidemia, unspecified; Z20.822 Contact with and (suspected) exposure to COVID-19; F17.210 Nicotine dependence, cigarettes, uncomplicated; F32.9 Major depressive disorder, single episode, unspecified; G25.0 Essential tremor; G89.4 Chronic pain syndrome; Z96.641 Presence of right artificial hip joint; F41.9 Anxiety disorder, unspecified; I11.9 Hypertensive heart disease without heart failure; M19.90 Unspecified osteoarthritis, unspecified site; M81.0 Age-related osteoporosis without current pathological fracture; Z80.0 Family history of malignant neoplasm of digestive organs; Z79.899 Other long term (current) drug therapy; Z80.3 Family history of malignant neoplasm of breast; Z82.49 Family history of ischemic heart disease and other diseases of the circulatory system; Z82.5 Family history of asthma and other chronic lower respiratory diseases; Y92.89 Other specified places as the place of occurrence of the external cause
CPT/HCPCS: 25605; 36415; 71045; 72170; 73090; 73100; 73130; 73502; 73562; 76000; 80048; 80053; 80061; 82550; 82607; 82728; 82746; 83036; 83615; 83690; 83735; 83880; 84100; 84155; 84165; 84443; 84484; 84550; 85025; 85379; 85610; 85652; 85730; 86141; 86850; 86900; 86901; 87040; 93970; 96361; 96374; 96375; 97110; 97116; 97530; C1713; C1769; C9113; G0378; J0171; J0690; J0696; J1100; J1885; J2250; J2405; J2704; J3490; J7060

== ENCOUNTER 2021-12-06 13:32 | Inpatient (IN) | payer MEDICAID, MEDICARE, OTHER ==
[~2021-12-06] VITALS: Ht 165.1 cm; Wt 56.1 kg
[~2021-12-06 13:32] MED LIST changes: -HYDR-4795 PO; +HYDR-4902 PO; +RIVA10TA PO
[2021-12-06 19:19] LABS: Basophils # (auto) 0.1 10 ^3/uL (0-0.2); Basophils % (auto) 0.9 % (0.0-2.0); Eosinophils # (auto) 0.2 10 ^3/uL (0-0.8); Eosinophils % (auto) 2.7 % (0.0-7.0); Hematocrit 34.9 % (36.0-46.0); Hemoglobin 12.1 g/dL (12.2-16.2); Lymphocytes # (auto) 2.2 10 ^3/uL (0.4-5.4); Lymphocytes % (auto) 30.3 % (10.0-50.0); Mean Corpuscular Hemoglobin 30.7 pg (28.0-32.0); Mean Corpuscular Hgb Conc. 34.8 g/dL (32.0-36.0); Mean Corpuscular Volume 88.3 fL (80.0-100.0); Monocytes # (auto) 0.7 10 ^3/uL (0-1.3); Monocytes % (auto) 9.2 % (0.0-12.0); Neutrophils # (auto) 4.1 10 ^3/uL (1.6-8.6); Neutrophils % (auto) 56.9 % (37.0-80.0); Nucleated Red Blood Cells % 0.1 %; Red Blood Cells 3.95 10^6/uL (4.0-5.20); Red Cell Distribution Width 13.7 % (11.8-14.3); White Blood Cell 7.2 10^3/uL (4.4-10.8)
[2021-12-06 19:37] LABS: Partial Thromboplastin Time 29.1 sec (23.6-33.0)
[2021-12-06 19:42] LABS: Albumin 3.2 g/dL (3.4-5.0); Calcium 8.4 mg/dL (8.5-10.1); Potassium 3.4 mmol/L (3.5-5.1)
[2021-12-06 19:46] LABS: BUN/Creatinine Ratio 21.8; Bilirubin, Total 0.1 mg/dL (0.2-1.0); Total Protein 7.3 g/dL (6.4-8.2)
[2021-12-06] MEDS ORDERED: DOCUSATE SOD 100 MG CAP PO PRN (21:30)
[2021-12-06] MEDS ORDERED: MORPHINE SULFATE INJECTION 2 MG/ML SYRG IV PRN (21:30)
[2021-12-06] MEDS ORDERED: NITROGLYCERIN 0.4 MG SL TAB SL PRN (21:30)
[2021-12-06] MEDS: SODIUM CHLORIDE 0.9% 1,000 ML IV SCH (22:45)
[2021-12-07] MEDS ORDERED: HYDR25TA5 PO (01:18)
[2021-12-07] MEDS ORDERED: BUPR150T18 PO (01:18)
[2021-12-07] MEDS ORDERED: ATOR40TA52 PO (01:18)
[2021-12-07] MEDS ORDERED: CARV6.2551 PO (01:18)
[2021-12-07 05:00] VITALS: BP 97/60
[2021-12-07 05:15] LABS: Basophils # (auto) 0 10 ^3/uL (0-0.2); Basophils % (auto) 0.6 % (0.0-2.0); Eosinophils # (auto) 0.2 10 ^3/uL (0-0.8); Eosinophils % (auto) 2.3 % (0.0-7.0); Hematocrit 34.2 % (36.0-46.0); Hemoglobin 11.9 g/dL (12.2-16.2); Lymphocytes # (auto) 1.9 10 ^3/uL (0.4-5.4); Lymphocytes % (auto) 25.3 % (10.0-50.0); Mean Corpuscular Hemoglobin 30.5 pg (28.0-32.0); Mean Corpuscular Hgb Conc. 34.8 g/dL (32.0-36.0); Mean Corpuscular Volume 87.4 fL (80.0-100.0); Monocytes # (auto) 0.6 10 ^3/uL (0-1.3); Monocytes % (auto) 7.8 % (0.0-12.0); Neutrophils # (auto) 4.8 10 ^3/uL (1.6-8.6); Red Blood Cells 3.91 10^6/uL (4.0-5.20); Red Cell Distribution Width 14.1 % (11.8-14.3); White Blood Cell 7.6 10^3/uL (4.4-10.8)
[2021-12-07 05:36] LABS: Potassium 3.6 mmol/L (3.5-5.1)
[2021-12-07 05:42] LABS: BUN/Creatinine Ratio 16.4; Calcium 8.6 mg/dL (8.5-10.1)
[2021-12-07 05:44] LABS: Bilirubin, Total 0.2 mg/dL (0.2-1.0); Total Protein 6.6 g/dL (6.4-8.2)
[2021-12-07 08:00] VITALS: BP 117/58
[2021-12-07 09:00] VITALS: BP 117/58
[2021-12-07] MEDS: ENOXAPARIN SOD 40 MG/0.4 ML SYRINGE SC SCH (10:17)
[2021-12-07] MEDS: HYDROcodone-ACET 5/325MG TAB PO PRN ×2 (10:20→21:19)
[2021-12-07 13:00] VITALS: BP 137/78
[2021-12-07] MEDS: SODIUM CHLORIDE 0.9% 1,000 ML IV SCH (14:10)
[2021-12-07 16:34] VITALS: BP 122/48
[2021-12-07 22:00] VITALS: BP 140/68
[2021-12-08 05:00] VITALS: BP 124/69
[2021-12-08 05:35] LABS: Basophils # (auto) 0 10 ^3/uL (0-0.2); Basophils % (auto) 0.6 % (0.0-2.0); Eosinophils # (auto) 0.2 10 ^3/uL (0-0.8); Eosinophils % (auto) 3.4 % (0.0-7.0); Hematocrit 36.1 % (36.0-46.0); Hemoglobin 12.3 g/dL (12.2-16.2); Lymphocytes # (auto) 1.2 10 ^3/uL (0.4-5.4); Lymphocytes % (auto) 16.9 % (10.0-50.0); Mean Corpuscular Hemoglobin 30.1 pg (28.0-32.0); Mean Corpuscular Hgb Conc. 34.1 g/dL (32.0-36.0); Mean Corpuscular Volume 88.5 fL (80.0-100.0); Monocytes # (auto) 0.5 10 ^3/uL (0-1.3); Monocytes % (auto) 6.9 % (0.0-12.0); Neutrophils # (auto) 5.1 10 ^3/uL (1.6-8.6); Neutrophils % (auto) 72.2 % (37.0-80.0); Nucleated Red Blood Cells % 0.3 %; Red Blood Cells 4.08 10^6/uL (4.0-5.20); Red Cell Distribution Width 13.7 % (11.8-14.3)
[2021-12-08 05:50] LABS: Calcium 8.7 mg/dL (8.5-10.1); Potassium 3.8 mmol/L (3.5-5.1)
[2021-12-08 05:57] LABS: BUN/Creatinine Ratio 27.8; Bilirubin, Total 0.2 mg/dL (0.2-1.0); Magnesium 2.3 mg/dL (1.6-2.6); Total Protein 6.8 g/dL (6.4-8.2)
[2021-12-08] MEDS: SODIUM CHLORIDE 0.9% 1,000 ML IV SCH ×3 (06:50→20:57)
[2021-12-08 08:59] VITALS: BP 135/73
[2021-12-08] MEDS: ENOXAPARIN SOD 40 MG/0.4 ML SYRINGE SC SCH (09:07)
[2021-12-08] MEDS: HYDROcodone-ACET 5/325MG TAB PO PRN (09:52)
[2021-12-08] MEDS: LIDOCAINE 1% (LOCAL ANESTH.) PF 5ml SDV ONE ×2 (11:42→13:10)
[2021-12-08] MEDS: BUPIVACAINE 0.25% INJ 50ML VIAL ONE ×2 (11:42→13:10)
[2021-12-08] MEDS ORDERED: MIDAZOLAM HCL 2MG/2ML 2ml VIAL (1mg/ml) ONE (11:49)
[2021-12-08] MEDS ORDERED: fentaNYL CITRATE 100 MCG/2 ML VL ONE (11:49)
[2021-12-08] MEDS ORDERED: ceFAZolin 1GM/50ML 50 ML IV ONE (11:58)
[2021-12-08] MEDS: LIDOCAINE 1%HCL (LOCAL ANESTH) 10 ML MDV ONE ×2 (12:02→13:10)
[2021-12-08] MEDS ORDERED: ONDANSETRON HCL 4 MG/2 ML VIAL ONE (12:44)
[2021-12-08] MEDS ORDERED: LIDOCAINE 2% (LOCAL ANESTH.) PF 5ml SDV ONE (12:44)
[2021-12-08] MEDS ORDERED: METOCLOPRAMIDE HCL 5MG/ml INJ 2ml VIAL ONE (12:44)
[2021-12-08] MEDS ORDERED: PROPOFOL 10 MG/ML 20 ML IV ONE (12:44)
[2021-12-08] MEDS ORDERED: DexAMETHasone SOD PHOS 10MG/1ML VIAL INJ ONE (12:44)
[2021-12-08] MEDS ORDERED: ONDANSETRON HCL 4 MG/2 ML VIAL IV PRN (13:30)
[2021-12-08] MEDS ORDERED: METOCLOPRAMIDE HCL 5MG/ml INJ 2ml VIAL IV PRN (13:30)
[2021-12-08] MEDS ORDERED: HYDROmorphone HCL 2 MG/ML VL/or syr IV PRN ×2 (13:30→13:45)
[2021-12-08] MEDS ORDERED: fentaNYL CITRATE 100 MCG/2 ML VL IV PRN (13:30)
[2021-12-08] MEDS ORDERED: HYDROmorphone HCL 2 MG/ML VL/or syr ONE (13:33)
[2021-12-08] MEDS: HYDROmorphone HCL 2 MG/ML VL/or syr IV PRN ×2 (13:37→14:10)
[2021-12-08] MEDS ORDERED: hydrALAZINE HCL 20 MG/ML VL IV ONE (13:45)
[2021-12-08] MEDS: hydrALAZINE HCL 20 MG/ML VL ONE ×2 (13:50→14:08)
[2021-12-08] MEDS: MORPHINE SULFATE INJECTION 2 MG/ML SYRG IV PRN ×2 (14:35→20:54)
[2021-12-08] MEDS ORDERED: clonazePAM 0.5 MG TAB PO SCH (16:00)
[2021-12-08 16:17] VITALS: BP 148/75
[2021-12-08] MEDS: ceFAZolin 1GM/50ML 50 ML IV SCH ×2 (17:36→23:58)
[2021-12-08] MEDS: ONDANSETRON HCL 4 MG/2 ML VIAL IV PRN (20:43)
[2021-12-08 22:00] VITALS: BP 141/70
[2021-12-08] MEDS: CARVEDILOL 3.125 MG TAB PO SCH (22:35)
[2021-12-09] MEDS: MORPHINE SULFATE INJECTION 2 MG/ML SYRG IV PRN ×3 (04:31→21:45)
[2021-12-09] MEDS: ONDANSETRON HCL 4 MG/2 ML VIAL IV PRN ×2 (04:31→08:32)
[2021-12-09 05:00] VITALS: BP 143/70
[2021-12-09] MEDS: ceFAZolin 1GM/50ML 50 ML IV SCH ×3 (05:09→18:47)
[2021-12-09 07:45] VITALS: BP 150/81
[2021-12-09 08:00] VITALS: BP 137/74
[2021-12-09] MEDS: CARVEDILOL 3.125 MG TAB PO SCH ×2 (09:26→21:45)
[2021-12-09] MEDS: HYDROcodone-ACET 5/325MG TAB PO PRN (09:27)
[2021-12-09] MEDS: ENOXAPARIN SOD 40 MG/0.4 ML SYRINGE SC SCH (09:27)
[2021-12-09] MEDS: HCTZ 25 MG TAB PO SCH (12:01)
[2021-12-09 13:00] VITALS: BP 151/75
[2021-12-09] MEDS: SODIUM CHLORIDE 0.9% 1,000 ML IV SCH (16:10)
[2021-12-09 16:25] VITALS: BP 137/74
[2021-12-09] MEDS: PROMETHAZINE HCL 25 MG/ML 1ML IV PRN (21:44)
[2021-12-09 22:00] VITALS: BP 156/77
[2021-12-10] MEDS: ceFAZolin 1GM/50ML 50 ML IV SCH ×3 (00:01→12:00)
[2021-12-10] MEDS: SODIUM CHLORIDE 0.9% 1,000 ML IV SCH (00:24)
[2021-12-10] MEDS: MORPHINE SULFATE INJECTION 2 MG/ML SYRG IV PRN (04:13)
[2021-12-10] MEDS: PROMETHAZINE HCL 25 MG/ML 1ML IV PRN (04:13)
[2021-12-10 05:00] VITALS: BP 148/78
[2021-12-10 08:30] VITALS: BP 149/86
[2021-12-10 08:49] VITALS: BP 149/86
[2021-12-10] MEDS: CARVEDILOL 3.125 MG TAB PO SCH (10:34)
[2021-12-10] MEDS: ENOXAPARIN SOD 40 MG/0.4 ML SYRINGE SC SCH (10:35)
[2021-12-10] MEDS: HCTZ 25 MG TAB PO SCH (10:38)
[2021-12-10 12:03] VITALS: BP 151/89
[2021-12-10] MEDS: HYDROcodone-ACET 5/325MG TAB PO PRN (12:16)
[2021-12-10 12:55] VITALS: BP 149/86
== END 2021-12-10 13:47 | disposition home or self-care (01) | DRG 511 ==
LOC: ER 13:32 → OVERFLOW 21:29 → EAST 12-07 00:04
PROVIDERS: ADMIT Hospitalist; ATTEND Hospitalist
PROC: BP1M1ZZ Fluoroscopy of Left Wrist using Low Osmolar Contrast (ICD-10-PCS; 2021-12-08)
PROC: 0PSJ04Z Reposition Left Radius with Internal Fixation Device, Open Approach (ICD-10-PCS; principal; 2021-12-08 12:06)
DX: T84.84XA Pain due to internal orthopedic prosthetic devices, implants and grafts, initial encounter (principal); S52.502P Unspecified fracture of the lower end of left radius, subsequent encounter for closed fracture with malunion; G62.9 Polyneuropathy, unspecified; F41.9 Anxiety disorder, unspecified; F17.210 Nicotine dependence, cigarettes, uncomplicated; F32.A Depression, unspecified; I10 Essential (primary) hypertension; R11.0 Nausea; Y83.8 Other surgical procedures as the cause of abnormal reaction of the patient, or of later complication, without mention of misadventure at the time of the procedure; Z20.822 Contact with and (suspected) exposure to COVID-19; X58.XXXA Exposure to other specified factors, initial encounter; Z80.0 Family history of malignant neoplasm of digestive organs; Z80.3 Family history of malignant neoplasm of breast; Z82.49 Family history of ischemic heart disease and other diseases of the circulatory system; Y93.89 Activity, other specified; Y92.89 Other specified places as the place of occurrence of the external cause; Y99.8 Other external cause status
CPT/HCPCS: 36415; 71045; 73110; 76000; 76705; 80053; 83735; 85025; 85610; 85730; 86850; 86900; 86901; 96360; G0378; J0690; J1100; J2001; J2250; J2405; J2704; J3490